=== PATIENT | male | born 1945 | race Caucasian/White ===

== ENCOUNTER 2017-03-29 19:25 | Inpatient (IN) | payer MEDICARE ==
--- NOTE | ~2017-03-29 | HP ---
History And Physical [id number] [facility] [place]. [address] NAME: DAVE WOMACK : 47 STATUS : ADM IN [facility]#: [id number] AGE: 71 ADM/REG DATE : 03/29/17 MR#: [id number] REPORT SERV DATE: 03/30/17 DICTATED BY: ANTHONY GRIFFIN DATE: 03/30/17 REPORT STATUS : Draft TRANSCRIBED BY: MODL DATE: 03/30/17 DATE OF ADMISSION: 03/29/2017 CHIEF COMPLAINT: Abdominal pain. HISTORY OF PRESENT ILLNESS: This is a 71-year-old male, who presents to the emergency room at [facility] with the above-mentioned complaint. He has a history of prostate cancer and has been on long-term Lupron therapy followed by Dr. Silva. History is obtained from the patient, his , who is at bedside, and reviewing data available on the [employer] [facility] [employer] system. According to the patient, he had been in his usual state of health until yesterday in the afternoon or evening, when he started having abdominal pain especially in his lower abdomen. He characterizes the pain as sharp and which comes on in waves and has some relief in between. He initially thought he had caught a stomach virus and this would pass, but his symptoms worsened through the night. This morning, he had one or two episodes of vomiting as well, but he reports no blood. He then took a laxative this morning and passed a very small amount of stool according to him without any blood. Pain continued through the day and he went to a walk-in clinic, who promptly sent him to the emergency room here to be evaluated. In the emergency room, he had an abnormal CT scan of his abdomen and pelvis which showed partial small bowel obstruction verus ileus, but also numerous osseous lesions suggestive of metastatic disease as well. Hospitalist Service is asked to admit him for further evaluation and treatment. At the time of my evaluation he denied any chest pain, palpitations, or orthopnea. He had no cough, hemoptysis, night sweats, or weight loss. He has not had any recent falls or loss of consciousness. He did have nausea and vomiting as mentioned above without any diarrhea. No history of hematemesis, hematochezia, or hematuria. No other history of recent travel or exposures other than those mentioned above. PAST MEDICAL HISTORY: Significant for history of prostate cancer initially diagnosed in 2006 with an aborted prostatectomy, and in 2008 he had radiation therapy as well. This was done by Dr. Monroy. Since then, he has been following up with Dr. Silva. SOCIAL HISTORY: He does not smoke, drink, or use recreational drugs. He used to be an insurance attorney. FAMILY HISTORY: Noncontributory. MEDICATIONS: His medications at home were reviewed by me in the chart today and reordered by me. REVIEW OF SYSTEMS: As in history of present illness. All other systems were reviewed in detail and are quite History And Physical [address] [address] NAME: DAVE WOMACK : [birth year] STATUS : ADM IN [facility]#: [id number] AGE: 71 ADM/REG DATE : 03/29/17 MR#: [id number] REPORT SERV DATE: 03/30/17 DICTATED BY: ANTHONY GRIFFIN DATE: 03/30/17 REPORT STATUS : Draft TRANSCRIBED BY: IVAN DATE: 03/30/17 unremarkable. PHYSICAL EXAMINATION: GENERAL: This is a pleasant 71-year-old, not in any acute distress. HEENT: His head is atraumatic and normocephalic. He is alert, awake, oriented to time, place, and person. His pupils are equal, reacting to light and accommodating. External ocular muscles are intact. Membranes are moist and pink. Sclerae are nonicteric. NECK: Supple with no jugular venous distention, lymphadenopathy, or thyromegaly. LUNGS: Clear to auscultation with no wheezes, rubs, or crackles. HEART: Heart sounds were regular with no murmurs, rubs, or gallops. ABDOMEN: Soft and nontender. Bowel sounds are present. EXTREMITIES: No cyanosis, clubbing, or edema. NEUROLOGIC: Grossly intact. No focal sensory or motor deficits. Higher functions appeared intact. He was able to move all four extremities. VITAL SIGNS: His temperature today was 97.7, pulse 65, respirations 16 a minute, blood pressure upon arrival was 137/89, and oxygen saturations were 97%, breathing 2 L of oxygen via nasal cannula. LABORATORY DATA: Laboratory data reviewed on the [facility] system showed a normal CMP with a blood glucose of 126, his albumin was 4.0, alkaline phosphatase was 56, ALT and AST were within normal limits, and lipase was 78. [place] [address]. Normal hemoglobin, hematocrit, and platelet count. His urinalysis was essentially within normal limits. Films of the CT scan of his abdomen and pelvis were reviewed by me on the PACS today and official Radiology comments were also reviewed. Per radiology report there is small bowel ileus versus partial small bowel obstruction with multiple osseous lesions suggestive of metastatic disease. Please see report for details. IMPRESSION: 1. Abdominal pain. 2. Partial small bowel obstruction versus small bowel ileus. 3. Osseous lesions concerning for metastatic disease. 4. History of prostate cancer. PLAN: We will admit Mr. Womack to the Hospitalist Service with defensive monitoring. We will keep him n.p.o. for now, consult Gastroenterology Service with Dr. Walls in the morning. Meanwhile, we will go ahead and consult Oncology Service here to evaluate him for metastatic disease, he does have a history of prostate cancer. We may need to get some records from Dr. Silva's office as well, he does not come to this hospital. We will provide pain control as needed. Start him on IV fluids for volume replacement, check chemistry and CBC in the morning again. He will be n.p.o. for now. We will also place him on unfractionated heparin for DVT prophylaxis given subcutaneously. I have discussed the above plans with the patient. His questions were answered, and he and his are History And Physical [address] [address] NAME: DAVE WOMACK : 47 STATUS : ADM IN PAT#: [id number] AGE: 71 ADM/REG DATE : 03/29/17 MR#: [id number] REPORT SERV DATE: 03/30/17 DICTATED BY: ANTHONY GRIFFIN DATE: 03/30/17 REPORT STATUS : Draft TRANSCRIBED BY: IVAN DATE: 03/30/17 agreeable to the above recommendations. Hospitalist Service will be following him during his stay here. /IVAN Anthony Griffin M.D. / [id number] CC: Sincere Navas NP
--- NOTE | ~2017-03-29 | CN ---
Consultation Report [facility] [address] [place]. [address] NAME: DAVE WOMACK : 47 STATUS : ADM IN PAT#: [id number] AGE: 71 ADM/REG DATE : 03/29/17 MR#: [id number] REPORT SERV DATE: 03/30/17 DICTATED BY: BHAVIN RUIZ DATE: 03/30/17 REPORT STATUS : Draft TRANSCRIBED BY: MODL DATE: 03/30/17 DATE OF CONSULTATION: 03/30/2017 REFERRING PHYSICIAN: Dr. Turner. REASON FOR CONSULTATION: Metastatic prostate cancer. HISTORY: Mr. Womack is a 71-year-old man who was originally diagnosed with localized prostate cancer in 2006. He was evaluated by Dr. Talavera at that time. Prostate biopsy confirmed prostatic adenocarcinoma Abdullahi pattern score of 3+4 equals 7 involving both the right lobe and the left lobe in the midline prostate. He was managed conservatively with hormonal therapy with improvement of his PSA and then discontinued Lupron and he was being monitored and required prostate radiation in 2008 under the care of Dr. Monroy, again with Lupron resumed and PSA normalizing. He later was found to have evidence of bone scan disease progression with metastasis and again was started on Lupron at this time under the care of Dr. Silva. He is continuing to receive Lupron intermittently with good control of PSA when receiving injections and then rising PSA usually within 12 months of discontinuation. He most recently had resumed Lupron and PSA was again decreasing per patient report, but again no records are available from Dr. Silva's office. He now presents with clinical partial small-bowel obstruction and admitted yesterday with a one-day history of abdominal pain and cramping with change in bowel habits, but still having bowel movements a small quantity. He denied any fevers or chills. He does not have any new back pain or other bone pain. He is having no difficulty with urination, but does have chronic urinary frequency since completion of radiation, but no pain with urination. He has had a colonoscopy in the past under the care Dr. Walls with finding of polyps, but no premalignant polyps, and denies any history of upper GI problems such as ulcers. PAST MEDICAL/SURGICAL HISTORY: Includes a prostate cancer, originally diagnosed in 2006, aborted prostatectomy, treated with radiation in 2008, treated with Lupron intermittently under the care of Dr. Silva for bone metastases, status post right inguinal hernia repair in 2006 under the care of Dr. Pinto. MEDICATIONS: Prior to admission included Flonase spray p.r.n., garlic supplement, fish oil supplement, Lupron injections every four months under the care of Dr. Silva. ALLERGIES: HE HAS NO KNOWN DRUG ALLERGIES. SOCIAL HISTORY: He denies any cigarette smoking, alcohol use, or illicit drug use. He is a retired independent insurance adjuster. FAMILY HISTORY: Noncontributory with no other family members having prostate cancer. REVIEW OF SYSTEMS: A 13-point review of systems is as per HPI, otherwise, unremarkable. Consultation Report [address] [place]. [address] NAME: DAVE WOMACK : 47 STATUS : ADM IN [facility]#: [id number] AGE: 71 ADM/REG DATE : 03/29/17 MR#: [id number] REPORT SERV DATE: 03/30/17 DICTATED BY: BHAVIN RUIZ DATE: 03/30/17 REPORT STATUS : Draft TRANSCRIBED BY: IVAN DATE: 03/30/17 PHYSICAL EXAMINATION: VITAL SIGNS: He is currently afebrile with normal vital signs. A well-developed and well- nourished man in no acute distress. Oriented x3. HEENT: With NC/AT and sclerae anicteric. NECK: No JVD or adenopathy. HEART: Regular rhythm without murmurs. LUNGS: Clear to auscultation. ABDOMEN: Moderately obese. Active bowel sounds. Soft and nontender. No palpable organomegaly or masses. No tympany. No ascites evident. EXTREMITIES: Without cyanosis, clubbing, or edema. Pulses are intact distally. NEUROLOGIC: Grossly intact with the patient sitting up in bed. SKIN: Without jaundice, rash, petechiae, or purpura. LYMPHATICS: Lymph node survey is without palpable adenopathy. LABORATORY DATA: Remarkable for CMP on admission within normal limits. Normal alkaline phosphatase. Also CBC within normal limits except for slight elevation of white count of 11,500. Urinalysis within normal limits. IMAGING: CT scan of the abdomen and pelvis shows changes consistent with partial small-bowel obstruction versus ileus. There are multiple sclerotic bony lesions evident consistent with bone metastases. No sign of lymphadenopathy or masses. ASSESSMENT AND RECOMMENDATIONS: Mr. Womack is a man with history of metastatic prostate cancer, treated with Lupron intermittently under the care of Dr. Silva. He has shown excellent response to Lupron over the years. He has no symptoms related to the bone metastases and he does report recent PSA is again decreasing. There is no indication that the partial small-bowel obstruction or ileus is in anyway related to his prostate cancer or the treatment for prostate cancer. He certainly has no evidence of any complications related to prior prostatic radiation. Clinically, his small-bowel obstruction and/or ileus is improving and I expect he will be discharged in the near future. He can have a scheduled followup with Dr. Silva in April for his next Lupron injection. I did discuss CT scan findings, but there is no need to change his treatment at this time. BECKY/IVAN Bhavin Ruiz M.D. / [id number] CC: MD JUVENTINO Taylor LISA M Consultation Report [address] [address] NAME: DAVE WOMACK : 47 STATUS : ADM IN [facility]#: [id number] AGE: 71 ADM/REG DATE : 03/29/17 MR#: [id number] REPORT SERV DATE: 03/30/17 DICTATED BY: BHAVIN RUIZ DATE: 03/30/17 REPORT STATUS : Draft TRANSCRIBED BY: IVAN DATE: 03/30/17 Sincere Guadalupe M.D.
--- NOTE | ~2017-03-29 | DS ---
Discharge Summary [id number] [place]. [address] NAME: DAVE WOMACK : 47 STATUS : DIS IN PAT#: [id number] AGE: 71 ADM/REG DATE : 03/29/17 MR#: [id number] REPORT SERV DATE: 04/02/17 DICTATED BY: DAVID ERICKSON DATE: 04/01/17 REPORT STATUS : Draft TRANSCRIBED BY: MODL DATE: 04/01/17 ADMISSION DATE: 03/29/2017 DISCHARGE DATE: 04/01/2017 REASON FOR ADMISSION: Partial small bowel obstruction. HPI: Please refer to Dr. Luciano's history and physical for complete details regarding the patient's admission. In brief, the patient was admitted to the Hospitalist Service for partial small bowel obstruction. HOSPITAL COURSE: The patient had an uncomplicated hospital course. He had a CT scan of his abdomen and pelvis done in the ER, which showed distended small bowel loops with air-fluid levels consistent with obstruction versus ileus. No transition point identified. There is a small amount of ascites. There are sclerotic changes within the osseous structure suspicious for metastatic disease. The patient was doing fairly well. He was already tolerating a clear liquid diet. Followup KUB the next day showed improving gas distention. He was starting to have some loose stools. C. diff was checked and it was negative. Ova and parasites were negative. He had recovered very quickly, tolerating a regular diet without any abdominal pain. No nausea, no vomiting. Dr. Elias with [facility] was consulted as there was concern for possible metastatic prostate cancer. Since the patient gets all of his care with Dr. Silva, we did not have any history at that point, but after Dr. Elais was able to get a hold of records, it was felt that his sclerotic changes were likely stable. The patient has reached maximal hospitalization. He is back to his baseline. He will be discharged to home in stable condition and follow up with Dr. Silva in 2-1/2 weeks. DISCHARGE DIAGNOSES: Partial small bowel obstruction, now resolved very quickly. Sclerotic lesions secondary to metastatic prostate cancer. PROCEDURES: Include CT scan of the abdomen and pelvis without contrast, KUB. CONSULTATION: Dr. Bhavin Elias with [facility]. DISCHARGE MEDICATIONS: Include Flonase, garlic, fish oil, Lupron. The patient will follow up with Dr. Silva on 04/19/2017 as scheduled. CLYDE/IVAN David Erickson MD / [id number] Discharge Summary [address] [address] NAME: DAVE WOMACK : 47 STATUS : DIS IN PAT#: [id number] AGE: 71 ADM/REG DATE : 03/29/17 MR#: [id number] REPORT SERV DATE: 04/02/17 DICTATED BY: DAVID ERICKSON DATE: 04/01/17 REPORT STATUS : Draft TRANSCRIBED BY: IVAN DATE: 04/01/17 CC: MD JUVENTINO Taylor LISA M Larry Schlabach, M.D.
[2017-03-29 16:12] LABS: BASOPHILS 0.2 %; BASOPHILS ABSOLUTE 0.02 10/3/uL (0.0-0.16); EOSINOPHILS 0.1 %; EOSINOPHILS ABSOLUTE 0.01 10/3/uL (0.0-0.53); HEMATOCRIT 43.5 % (40.0-51.0); HEMOGLOBIN 15.3 g/dL (13.6-17.8); IMMATURE GRANULOCYTES 0.2 %; IMMATURE GRANULOCYTES ABSOLUTE 0.02 10/3/uL (0.0-0.11); LYMPHOCYTES 8.4 %; LYMPHOCYTES ABSOLUTE 0.97 10/3/uL (0.67-4.30); MANUAL DIFF NO %; MEAN CORPUS HGB CONC 35.2 g/dL (32.0-36.0); MEAN CORPUSCULAR HEMOGLOB 32.1 pg (26.0-34.0); MEAN CORPUSCULAR VOLUME 91.4 fL (80-100); MEAN PLATELET VOLUME 10.2 fL (9.2-13.0); MONOCYTES 5.8 %; MONOCYTES ABSOLUTE 0.67 10/3/uL (0.21-1.20); NEUTROPHILS 85.3 %; NEUTROPHILS ABSOLUTE 9.83 10/3/uL (2.02-8.40); PLATELET COUNT 228 10/3/uL (150-400); RBC DISTRIBUTION WIDTH 13.3 % (12.0-16.0); RED CELL COUNT 4.76 10/6/uL (4.7-6.1); WHITE BLOOD CELLS 11.5 10/3/uL (4.5-10.5)
[2017-03-29 16:17] LABS: ASCORBIC ACID (UR NOT ORDER) NEG (NEG); BILIRUBIN, URINE NEGATIVE (NEG); ER URINALYSIS TAT 0 Hrs 11 Mins; KETONE, URINE NEGATIVE (NEG); LEUKOCYTE ESTERASE(NOT OR NEG (NEG); NITRITE (URINE) NEG (NEG); WBC (NOT ORDERED) (RFLEX) 1 (0-5)
[2017-03-29 16:30] LABS: ALKALINE PHOSPHATASE 56 U/L (45-117); BUN (BLOOD UREA NITROGEN) 15 MG/DL (6-23); CHLORIDE, SERUM 105 MMOL/L (96-112); CO2 (CARBON DIOXIDE) 32 MMOL/L (24-34); CREATININE 0.95 MG/DL (0.70-1.30); GFR AFRICAN AMERICAN 94 ML/MIN (>=60); GFR NON AFRICAN AMERICAN 81 ML/MIN (>=60); POTASSIUM, SERUM 3.8 MMOL/L (3.5-5.3); SGOT(AST) 15 U/L (5-40); SGPT(ALT) 19 U/L (5-65); SODIUM, SERUM 142 MMOL/L (135-148); TOTAL PROTEIN 7.4 G/DL (6.0-8.5)
[2017-03-29 16:31] LABS: A/G RATIO 1.2 (0.7-1.9); GLOBULIN 3.4 G/DL (2.5-4.1); GLUCOSE, SERUM 126 MG/DL (60-99); TOTAL BILIRUBIN 1.2 MG/DL (0-1.2)
[~2017-03-29 19:25] MED LIST: FISH OIL PO; FLONASE NAS; GARLIC OTC PO; LUPRON IV/IM/SC
[2017-03-30 05:56] LABS: BASOPHILS 0.3 %; BASOPHILS ABSOLUTE 0.02 10/3/uL (0.0-0.16); EOSINOPHILS 1.4 %; EOSINOPHILS ABSOLUTE 0.11 10/3/uL (0.0-0.53); HEMOGLOBIN 13.1 g/dL (13.6-17.8); IMMATURE GRANULOCYTES 0.1 %; IMMATURE GRANULOCYTES ABSOLUTE 0.01 10/3/uL (0.0-0.11); LYMPHOCYTES ABSOLUTE 0.99 10/3/uL (0.67-4.30); MEAN CORPUS HGB CONC 34.5 g/dL (32.0-36.0); MEAN CORPUSCULAR HEMOGLOB 32.1 pg (26.0-34.0); MEAN CORPUSCULAR VOLUME 93.1 fL (80-100); MEAN PLATELET VOLUME 10.5 fL (9.2-13.0); MONOCYTES 9.7 %; MONOCYTES ABSOLUTE 0.74 10/3/uL (0.21-1.20); NEUTROPHILS 75.5 %; NEUTROPHILS ABSOLUTE 5.72 10/3/uL (2.02-8.40); PLATELET COUNT 186 10/3/uL (150-400); RBC DISTRIBUTION WIDTH 13.4 % (12.0-16.0); RED CELL COUNT 4.08 10/6/uL (4.7-6.1); WHITE BLOOD CELLS 7.6 10/3/uL (4.5-10.5)
[2017-03-30 06:05] LABS: MANUAL DIFF NO %
[2017-03-30 06:12] LABS: BUN (BLOOD UREA NITROGEN) 17 MG/DL (6-23); CALCIUM, SERUM 8.3 MG/DL (8.5-10.4); CHLORIDE, SERUM 106 MMOL/L (96-112); CO2 (CARBON DIOXIDE) 33 MMOL/L (24-34); CREATININE 0.89 MG/DL (0.70-1.30); GFR AFRICAN AMERICAN 100 ML/MIN (>=60); GFR NON AFRICAN AMERICAN 87 ML/MIN (>=60); GLUCOSE, SERUM 114 MG/DL (60-99); POTASSIUM, SERUM 3.6 MMOL/L (3.5-5.3); SODIUM, SERUM 142 MMOL/L (135-148)
[2017-03-31 10:01] LABS: CALCIUM, SERUM 8.3 MG/DL (8.5-10.4); CHLORIDE, SERUM 109 MMOL/L (96-112); CO2 (CARBON DIOXIDE) 30 MMOL/L (24-34); CREATININE 0.86 MG/DL (0.70-1.30); GFR AFRICAN AMERICAN 102 ML/MIN (>=60); GFR NON AFRICAN AMERICAN 88 ML/MIN (>=60); GLUCOSE, SERUM 134 MG/DL (60-99); POTASSIUM, SERUM 3.7 MMOL/L (3.5-5.3); SODIUM, SERUM 142 MMOL/L (135-148)
[2017-03-31 10:06] LABS: BUN (BLOOD UREA NITROGEN) 8 MG/DL (6-23)
== END 2017-04-01 18:56 | disposition home or self-care (01) | DRG 389 ==
LOC: ER 19:25 → 4SO 19:59
PROVIDERS: Emergency Medicine; Internal Medicine; Internal Medicine Pulmonary Disease
DX: K56.60 Unspecified intestinal obstruction (principal); C79.51 Secondary malignant neoplasm of bone; R18.8 Other ascites; Z85.46 Personal history of malignant neoplasm of prostate; Z92.3 Personal history of irradiation; Z86.010 Personal history of colon polyps; C61 Malignant neoplasm of prostate; Z79.818 Long term (current) use of other agents affecting estrogen receptors and estrogen levels
CPT/HCPCS: 74000; 74176; 80048; 80053; 81001; 82272; 83690; 83735; 84100; 85025; 87045; 87046; 87046-59; 87328; 87329; 87493; 87493-59; 87899; 87899-59; 96374; 99285; A9270-GY; J1170; J2405